=== PATIENT | female | born 1965 | race Caucasian/White ===

== ENCOUNTER 2022-07-20 19:24 | Emergency (ER) | payer BC, OTHER ==
[2022-07-20 20:09] VITALS: RESP 18; TEMP 97.4; BMI 25.7
[2022-07-20] MEDS ORDERED: ACETAMINOPHEN 1000 MG/100 ML BAG IVPB ONE (20:28)
[2022-07-20] MEDS ORDERED: SODIUM CHLORIDE 0.9% 500 ML INFUS.BAG IV ONE ×2 (20:28→21:14)
[2022-07-20 20:39] LABS: BASO % 0.8 % (0-2.0); EOS % 4.2 % (0-4.5); HEMATOCRIT 38.4 % (32.4-45.2); LYMPH % 31.5 % (8-40); MCH 32.5 pg (25.7-33.7); MCHC 33.7 g/dl (32.0-36.0); MEAN CELL VOLUME 96.3 fl (80-96); MEAN PLT VOLUME 8.3 fl (7.5-11.1); MONO % 6.6 % (3.8-10.2); NEUT % 56.9 % (42.8-82.8); PLATELET COUNT 174 10^3/uL (134-434); RBC 3.99 M/mm3 (3.60-5.2); RDW 14.2 % (11.6-15.6); WHITE BLOOD COUNT 7.5 K/mm3 (4.0-10.0)
[2022-07-20 20:46] LABS: INR 0.99 (0.83-1.09); PROTHROMBIN TIME (PATIENT) 11.4 SEC (9.7-13.0)
[2022-07-20 20:49] LABS: ACTIVATED PTT 28.7 SECONDS (25.2-36.5)
[2022-07-20 20:58] LABS: BLOOD UREA NITROGEN 24.1 mg/dL (7-18); CALCIUM 9.1 mg/dL (8.5-10.1)
[2022-07-20 20:59] LABS: MAGNESIUM 2.1 mg/dL (1.8-2.4)
[2022-07-20 21:02] LABS: CREATININE 1.8 mg/dL (0.55-1.3)
[2022-07-20 21:03] LABS: BILIRUBIN,TOTAL 0.2 mg/dL (0.2-1); TOT PROT 6.3 g/dl (6.4-8.2)
[2022-07-20] MEDS ORDERED: ACETAMINOPHEN INJECTION 100 ML IVPB ONE (21:15)
[2022-07-20] MEDS ORDERED: LACTATED RINGERS SOLUTION 1000 ML INFUS.BAG IV ONE (21:27)
[2022-07-21 00:16] LABS: CALCIUM 8.7 mg/dL (8.5-10.1)
[2022-07-21 00:17] LABS: BLOOD UREA NITROGEN 23.9 mg/dL (7-18)
[2022-07-21 00:20] LABS: CREATININE 1.7 mg/dL (0.55-1.3)
[2022-07-21 06:19] VITALS: BP 132/80; PULSE 72
== END 2022-07-21 06:20 | disposition home or self-care (01) ==
LOC: JER 19:24
PROC: 3E033NZ Introduction of Analgesics, Hypnotics, Sedatives into Peripheral Vein, Percutaneous Approach (ICD-10-PCS; principal; 2022-07-20)
DX: R07.9 Chest pain, unspecified (principal)
CPT/HCPCS: 0241U-QW; 36415; 71045-TC-FY; 80048; 80053; 82550; 83690; 83735; 84484; 85025; 85610; 85730; 93005; 93010; 96374; 99284-25